=== PATIENT | male | born 1935 | race Caucasian/White ===

== ENCOUNTER → 2017-05-14 | Outpatient (CLI) | payer OTHER ==
[~2017-05-14] MED LIST: ASPIR-LOW81 MG PO; ATORVASTATIN CA20 MG PO; ATORVASTATIN CA80 MG PO; Aspirin E.C. PO; BRILINTA90 MG PO; LIPITOR80 MG PO; LISINOPRIL5 MG PO; LOPRESSOR25 MG PO; METOPROLOL TART25 MG PO
== END | disposition home or self-care (01) ==
LOC: RAD 12:48
DX: M79.602 Pain in left arm (principal); M79.89 Other specified soft tissue disorders
CPT/HCPCS: 93971